=== PATIENT | female | born 1965 | race Caucasian/White ===

== ENCOUNTER 2017-04-03 08:14 | Day surgery (SDC) | payer MEDICAID ==
[2017-04-03] MEDS ORDERED: Lactated Ringer's 1,000 ML IV ONE (08:54)
[2017-04-03] MEDS ORDERED: Propofol 10 mg/ml Inj (20 ML) ONE (10:31)
[2017-04-03 10:53] VITALS: BP 100/59; PULSE 73; RESP 22; TEMP 97.1; O2SAT 96
== END 2017-04-03 11:19 | disposition home or self-care (01) ==
LOC: H.ENDO 08:14
PROVIDERS: ATTEND Internal Medicine Gastroenterology
DX: R14.0 Abdominal distension (gaseous) (principal); K30 Functional dyspepsia; K29.70 Gastritis, unspecified, without bleeding
CPT/HCPCS: 43239; 88305; J2704; J7120